=== PATIENT | female | born 1955 | race Caucasian/White ===

== ENCOUNTER 2017-09-06 13:33 | Emergency (ER) | payer BC ==
[~2017-09-06] VITALS: Ht 172.7 cm; Wt 68.0 kg
[2017-09-06] MEDS ORDERED: DOXY20TA3 PO (13:50)
[2017-09-06] MEDS ORDERED: ALBU8HFA4 INH (13:50)
[2017-09-06] MEDS ORDERED: RANI300T4 PO (13:50)
[2017-09-06] MEDS ORDERED: [UNRECOGNIZED DRUG - REMARK] (13:50)
[2017-09-06] MEDS ORDERED: CETI-102 PO (13:50)
[2017-09-06] MEDS ORDERED: [UNRECOGNIZED DRUG - REMARK] (13:51)
--- NOTE | 2017-09-06 14:40 | NUR ---
Patient discharged to home in stable conditon. Written and verbal after care instructions given. Patient verbalizes understanding of instructions.
== END 2017-09-06 14:41 | disposition home or self-care (01) ==
LOC: ER 13:33
DX: R60.9 Edema, unspecified (principal); J45.909 Unspecified asthma, uncomplicated; K21.9 Gastro-esophageal reflux disease without esophagitis; Z79.2 Long term (current) use of antibiotics; Z79.899 Other long term (current) drug therapy
CPT/HCPCS: 93971; 99284; A4663